=== PATIENT | female | born 1970 | race Caucasian/White ===

== ENCOUNTER 2016-04-18 16:23 | Emergency (ER) | payer OTHER ==
[2016-04-18 18:13] LABS: BASOPHIL 0.8 % (0-2); EOSINOPHIL 1.6 % (0-5); HCT 43.6 % (37.0-47.0); HGB 15.1 g/dl (12.5-16.0); LYMPHOCYTE 18.5 % (15-48); MCH 29.7 pg (25.0-31.0); MCHC 34.6 g/dL (32.0-36.0); MCV 85.7 fL (78.0-100.0); MONOCYTE 7.1 % (0-12); MPV 10.5 fL (6.0-9.5); PLT 235 K/uL (150-400); RBC 5.09 M/uL (4.20-5.40); RDW 13.3 % (11.5-14.0); WBC 7.4 K/uL (4.0-10.5)
[2016-04-18 18:30] LABS: CKMB 3.09 ng/mL (0.97-4.94); TROPONIN T < 0.010 ng/mL
[2016-04-18 18:32] LABS: ALBUMIN 4.7 g/dL (3.5-5.0); BILIRUBIN - TOTAL 0.6 mg/dL (0.1-1.0); CREATININE 0.7 mg/dL (0.5-1.0); GLOBULIN (CALCULATION) 3.2 g/dL (2.2-4.2); TOTAL PROTEIN 7.9 g/dL (6.4-8.3)
== END 2016-04-18 19:05 | disposition home or self-care (01) ==
LOC: FER 16:23
PROVIDERS: Emergency Medicine
DX: S13.4XXA Sprain of ligaments of cervical spine, initial encounter (principal); R07.9 Chest pain, unspecified; E11.9 Type 2 diabetes mellitus without complications; I10 Essential (primary) hypertension; Z79.82 Long term (current) use of aspirin; Z79.84 Long term (current) use of oral hypoglycemic drugs; Z79.899 Other long term (current) drug therapy; V49.40XA Driver injured in collision with unspecified motor vehicles in traffic accident, initial encounter; Y92.410 Unspecified street and highway as the place of occurrence of the external cause
CPT/HCPCS: 36415; 71020; 72125; 80053; 82550; 82553; 84484; 85025; 93005